=== PATIENT | female | born 1950 | race Caucasian/White ===

== ENCOUNTER 2021-09-02 12:43 | Outpatient (CLI) | payer MEDICARE, MEDICAID, SELFPAY ==
--- NOTE | 2021-09-02 12:53 | US_ITS ---
WS: [id number] ABDOMINAL ULTRASOUND LIMITED REASON FOR VISIT: ABD PAIN, RLQ TECHNIQUE: Grayscale and Doppler ultrasound examination of the abdomen. FINDINGS: Pancreas: No mass, ductal dilatation, or calcification. Abdominal aorta and IVC: Normal Liver: Liver measures 15.6 cm in length. Normal echogenicity. No focal lesion. Normal portal venous b lood flow. Gallbladder: Gallbladder wall thickness measures 0.1 mm. No gallbladder calculi. Common bile duct 1.8 mm, normal. Right kidney: Right kidney measures 9.4 cm x 4.4 cm x 5.5 cm. Right kidney cortex measures 1.0 cm. Th ere appears to be mild to moderate hydronephrosis and mild to moderate proximal hydroureter. No mass or calculus. No ascites. US/US abdomen limited [id number] IMPRESSION: Right hydronephrosis. As clinically warranted an unenhanced CT scan of the abdo men and pelvis could be obtained to further evaluate obstructive uropathy.
== END 2021-09-02 12:44 | disposition home or self-care (01) ==
PROVIDERS: PCP Internal Medicine; Visit Provider Internal Medicine
DX: R10.31 Right lower quadrant pain (principal); N13.30 Unspecified hydronephrosis
CPT/HCPCS: 76705

== ENCOUNTER 2021-09-18 13:46 | Outpatient (CLI) | payer MEDICARE, MEDICAID, SELFPAY ==
--- NOTE | 2021-09-18 14:07 | CT_ITS ---
WS: [id number] CT ABDOMEN AND PELVIS NONCONTRAST HISTORY: HYDRONEPHROSIS, RIGHT TECHNIQUE: Imaging performed through the abdomen and pelvis. Coronal and sagittal reformats are submi tted. All CT scans at [facility] use at least one of these dose optimization techniques: auto mated exposure control; mA and/or kV adjustment per patient size (includes targeted exams where dose is matched to clinical indication); or iterative reconstruction. DLP: 517.14 mGy.cm COMPARISON: Ultrasound 09/02/2021 Lower thorax: Lung bases are clear. Visualized heart is normal. No hiatal hernia. Severe levoscoliosis thoracolumbar spine. Liver: Normal size liver. No mass or bile duct dilatation. Gallbladder: Normal gallbladder. Pancreas: Atrophic pancreas. Pancreas is poorly visualized. Spleen: Normal. Adrenal glands: Normal. No mass. Right kidney: RIGHT kidney projects over the midline to the scoliosis. Mild dilatation of the renal p isabel. The ureter is not dilated. Left kidney: Normal size kidney with no mass or hydronephrosis. Aorta: Mild atherosclerosis abdominal aorta with no aneurysm. No free fluid, intraperitoneal air or significant lymphadenopathy. GI tract: Normal appendix. No GI tract obstruction or diverticulosis. Abdominal wall: Negative. No hernia. Pelvis: Urinary bladder is well distended. There are few calcifications within the pelvis which do no t appear to be within the urological system and these may be phleboliths. Ureters are not dilated. Osseous structures: Severe LEFT curvature lumbar spine. CT/CT abdomen pelvis wo con [id number] IMPRESSION: 1. Very slight dilatation of the RIGHT renal pelvis may be related to the devi ent's scoliosis and orientation of the kidney. There is no significant dilatati on of the renal pelvis. The ureter is not dilated. 2. Severe LEFT scoliosis thoracolumbar spine.
== END 2021-09-18 13:47 | disposition home or self-care (01) ==
PROVIDERS: PCP Internal Medicine; Visit Provider Internal Medicine
DX: N13.30 Unspecified hydronephrosis (principal); M41.85 Other forms of scoliosis, thoracolumbar region
CPT/HCPCS: 74176